=== PATIENT | female | born 1935 | race Caucasian/White ===

== ENCOUNTER 2016-10-02 14:39 | Outpatient (CLI) ==
--- NOTE | 2016-10-02 15:26 | US ---
EXAM: Left upper extremity venous Doppler. History: Left upper extremity edema. Technique: Multiple sonographic images through the left upper extremity were obtained. Color duple x Doppler was used to interrogate vascular flow. Findings: The left jugular, subclavian, axillary, brachial, cephalic, basilic, radial and ulnar vei ns demonstrate spontaneous flow with normal compression and normal augmentation. Impression: No sonographic evidence for deep venous thrombosis.
== END 2016-10-02 14:40 | disposition home or self-care (01) ==
LOC: RAD 14:39
PROVIDERS: ATTEND Family Medicine
DX: M79.89 Other specified soft tissue disorders (principal); S61.412A Laceration without foreign body of left hand, initial encounter

== ENCOUNTER 2016-12-03 11:47 | Outpatient (CLI) ==
--- NOTE | 2016-12-03 13:37 | CT ---
EXAM: CTA of the chest. History: Short of breath, upper extremity thrombus. Technique: Multiplanar CT images through the thorax were obtained following administration of IV co ntrast. MIP images and 3-D reconstructions were also provided. Findings: Within the superior left breast, posterior depth there is a 2.7 cm lesion. There is subc utaneous edema and skin thickening of the left breast. No pathologically enlarged axillary lymph no priyank. No pathologically enlarged mediastinal or hilar lymph nodes. Calcified hilar lymph nodes are seen. No pulmonary arterial filling defects. The main pulmonary artery measures 3.7 cm in caliber. No thoracic aortic aneurysm. Heart is mildly enlarged. No pericardial effusion. Small to moderate bilateral pleural effusions. Interlobular septal thickening is seen. Scattered ar eas of subsegmental atelectasis and patchy bilateral ground-glass infiltrates. No pneumothorax. 3 m m right middle lobe nodule axial image 48. Within the visualized upper abdomen, biliary stent is seen in place. There is pneumobilia. Gallbla dder wall thickening. Dilated main pancreatic duct. Colonic diverticulosis. No acute osseous abnor malities. Degenerative changes of the thoracic spine with prominent anterior osteophytes. Impression: 1. No pulmonary embolism. 2. Cardiomegaly with interstitial pulmonary edema and small to moderate bilateral pleural effusions . 3. The bilateral patchy lung infiltrates are probably related to edema but underlying pneumonia is not excluded. 4. Pulmonary arterial hypertension. 5. Superior left breast mass and skin thickening and edema within the left breast. Correlate with ultrasound and mammogram. 6. Biliary stent, pneumobilia and dilated pancreatic duct.
== END 2016-12-03 11:48 | disposition home or self-care (01) ==
LOC: RAD 11:47
PROVIDERS: ATTEND Specialist
DX: R06.02 Shortness of breath (principal); I82.90 Acute embolism and thrombosis of unspecified vein

== ENCOUNTER 2016-12-13 12:16 | Outpatient (CLI) | payer OTHER ==
--- NOTE | 2016-12-13 13:22 | US ---
EXAM: Transvaginal pelvic ultrasound HISTORY: Pelvic mass COMPARISON: None TECHNIQUE: Transvaginal pelvic ultrasound was performed FINDINGS: Uterus measures 3.0 x 3.2 x 4.7 cm. Myometrium is mildly heterogeneous, likely within nor mal limits given patient age. Endometrium measures 4.5 mm with small endometrial fluid measuring up to 5 mm. Right and left ovary not visualized. No free fluid identified in the cul-de-sac. IMPRESSION: 1. Small nonspecific endometrial fluid. Endometrium otherwise grossly unremarkable, measuring 4.5 m m. Recommend sonographic follow-up 6 months for reevaluation. 2. Nonvisualization right and left ovary
== END 2016-12-13 12:17 | disposition home or self-care (01) ==
LOC: RAD 12:16
PROVIDERS: ATTEND Family Medicine
DX: R19.00 Intra-abdominal and pelvic swelling, mass and lump, unspecified site (principal)

== ENCOUNTER 2017-08-08 05:13 | Outpatient (CLI) | END 2017-08-08 05:14 | disposition short-term general hospital (02) | LOC: AMBL 05:13 | PROVIDERS: ATTEND Internal Medicine Geriatric Medicine | DX: C80.1 Malignant (primary) neoplasm, unspecified (principal); C79.9 Secondary malignant neoplasm of unspecified site; R41.82 Altered mental status, unspecified; Z79.899 Other long term (current) drug therapy ==

== ENCOUNTER 2017-10-01 15:40 | Outpatient (CLI) | END 2017-10-01 15:41 | disposition short-term general hospital (02) | LOC: AMBL 15:40 | PROVIDERS: ATTEND Internal Medicine | DX: R68.89 Other general symptoms and signs (principal); R11.2 Nausea with vomiting, unspecified; R19.7 Diarrhea, unspecified; R53.1 Weakness ==

== ENCOUNTER 2018-05-17 15:25 | Outpatient (CLI) ==
[2018-05-17] MEDS ORDERED: ROCEPHIN IM STA (15:32)
[2018-05-17] MEDS ORDERED: LIDOCAINE HCL 1% SDV IM STA (15:32)
== END 2018-05-17 15:26 | disposition home or self-care (01) ==
LOC: OPMED 15:25
PROVIDERS: ATTEND Family Medicine
DX: R82.71 Bacteriuria (principal)
CPT/HCPCS: 96372

== ENCOUNTER 2018-05-18 15:29 | Outpatient (CLI) ==
[2018-05-18] MEDS ORDERED: ROCEPHIN IM STA (15:34)
[2018-05-18] MEDS ORDERED: LIDOCAINE HCL 1% SDV IM STA (15:34)
[2018-05-18] MEDS ORDERED: ROCEPHIN ONE (15:36)
[2018-05-18] MEDS ORDERED: LIDOCAINE HCL 1% SDV ONE (15:37)
== END 2018-05-18 15:30 | disposition home or self-care (01) ==
LOC: OPMED 15:29
PROVIDERS: ATTEND Family Medicine
DX: R82.71 Bacteriuria (principal)
CPT/HCPCS: 96372